=== PATIENT | female | born 1945 | race Hispanic/Latino ===

== ENCOUNTER 2025-02-05 15:09 | Emergency (ER) | payer OTHER ==
[~2025-02-05] VITALS: Ht 152.4 cm; Wt 63.5 kg
[~2025-02-05 15:09] MED LIST: AMLO-257 PO; BENA-8 PO; SIMV-43 PO; bayer PO
[2025-02-05 15:48] LABS: IMMATURE GRANULOCYTE ABSOLUTE 0.02 K/uL (0-1); NUCLEATED RED BLOOD CELLS 0.0 % (0.0-0.19); PLATELET COUNT (AUTO) 192 K/uL (130-400); RED BLOOD CELL COUNT(AUTO) 4.92 MIL/uL (4.00-5.50); RED CELL DISTRIBUTION WIDTH 12.9 % (11.0-15.5); WHITE BLOOD COUNT (AUTO) 7.0 K/uL (4.8-10.8)
--- NOTE | 2025-02-05 15:49 | EKG ---
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
--- NOTE | 2025-02-05 15:55 | ERN ---
General Chief Complaint: Dizzy/Light Headed Stated Complaint: DIZZINESS Time Seen by MD: 15:14 Source: patient History of Present Illness Initial Comments This patient is a 79-year-old female who presented with complaint of dizziness. Patient states that she got up to use restroom at 6:00 a.m. in the morning when she felt dizzy and lightheaded. She has a history of vertigo but states that this episode was different and she did not observe any spinning episodes. Only lightheadedness and weakness. Denies any chest pain, nausea, vomiting or loose stools. Patient confirms that she has been recently feeling short of breath with little to moderate activity. Timing/Duration: 4-6 hours Severity: mild Allergies: Coded Allergies: Penicillins (Unverified Allergy, Mild, 01/11/16) Home Meds Reported Medications [ginna] No Conflict Check, 300 MG PO HS 01/11/16 Amlodipine Besylate (Amlodipine Besylate) 5 Mg Tablet, 5 MG PO DAILY, #90 01/11/16 Simvastatin (Simvastatin) 20 Mg Tablet, 20 MG PO HS, #90 01/11/16 Benazepril HCl (Benazepril HCl) 20 Mg Tablet, 20 MG PO DAILY, #90 01/11/16 Past Medical History Past Medical History: Hypertension Past Surgical History: None Constitutional: (-) chills, (-) diaphoresis, (-) fever, (-) malaise, (-) weakness, (-) other documentation EENTM: (-) eye pain, (-) blurred vision, (-) tearing, (-) double vision, (-) ear pain, (-) ear discharge, (-) nose pain, (-) nose congestion, (-) throat pain, (-) Throat swelling, (-) mouth pain, (-) tooth pain, (-) mouth swelling, (-) other documentation Respiratory: (-) cough, (-) orthopnea, (-) short of breath, (-) stridor, (-) wheezing, (-) other documentation Cardiovascular: (+) other documentation (Lightheadedness); (-) chest pain, (-) edema, (-) palpitations, (-) syncope Gastrointestinal/Abdominal: (-) nausea, (-) vomiting, (-) diarrhea, (-) abdominal pain, (-) abdominal distention, (-) constipation, (-) rectal bleeding, (-) dark stool/melena, (-) other documentation Genitourinary: (-) vaginal discharge, (-) vaginal bleeding, (-) dysuria, (-) frequency, (-) hematuria, (-) pain, (-) other documentation Musculoskeletal: (-) Neck pain, (-) back pain, (-) Flank Pain, (-) joint pain, (-) joint swelling, (-) muscle pain, (-) muscle stiffness, (-) gout, (-) other documentation Skin: (-) laceration, (-) contusion, (-) abrasion, (-) abscess, (-) rash, (-) change in color, (-) change in hair, (-) change in nails, (-) diaphoresis, (-) dryness, (-) other documentation Neuro: (+) dizziness; (-) altered mental status, (-) headache, (-) syncope, (-) paralysis, (-) numbness, (-) seizure, (-) pre-existing deficit, (-) tremors, (-) weakness, (-) slurred speech, (-) vertigo, (-) other documentation Psych: (-) depression, (-) suicidal ideation, (-) anxiety, (-) emotional problems, (-) auditory hallucinations, (-) visual hallucinations Hematologic/Lymphatic: (-) anemia, (-) blood clots, (-) easy bleeding, (-) easy bruising, (-) swollen glands, (-) other documentation Physical Exam Physical Exam Dictation VITAL SIGNS: Reviewed. GENERAL APPEARANCE: Alert, oriented x3, no acute distress, obese. HEAD AND FACE: Non-traumatic. EYES: PERRL, pink conjunctivas, eyelid no trauma, anterior chamber clear. EARS: Pinnas intact and no signs of trauma or erythema. Ear canals clear and no discharge. TMs erythema. NOSE: No discharge, no bleeding. Nasal turbinate swelling OROPHARYNX: Mouth normal, teeth no caries, tongue pink. Pharynx erythema. Tonsils no exudates, no abscesses noted. Mucous membrane moist. NECK: Supple, non-tender, no thyromegaly, no masses, no JVD, no bruits. BREAST: Deferred. CHEST: No tenderness, no crepitus, no paradoxical movement, no retractions. LUNGS: Clear, well-ventilated, symmetric, no rales, no wheezing, no rhonchi, no stridor, good breath sounds bilaterally. HEART: Regular rate, regular rhythm, no murmur, no gallops. VASCULAR: No peripheral edema. ABDOMEN: Soft, positive bowel sounds, nondistended, no guarding, nontender, no rebound, no masses no hepatomegaly, no splenomegaly, no Cheema's sign, no hernias. RECTAL: Deferred. GENITAL: Deferred. NEUROLOGICAL: Normal speech, gross motor function intact, gross sensory function intact. MUSCULOSKELETAL: Neck nontender, full range of motion, back nontender, full range of motion. EXTREMITIES: Nontender, full range of motion. SKIN: Color pink, dry, no turgor, no rash, no lacerations, no abrasions, no contusions. LYMPHATICS: Deferred. General Appearance: (+) no apparent distress Orientation: (+) alert, (+) oriented x 3 Ear, Nose, Throat: (+) hearing grossly normal, (+) normal ENT inspection, (+) moist mucous membraine, (+) normal pharynx Neck: (+) normal inspection, (+) supple, (+) full range of motion Respiratory: (+) chest non-tender, (+) lungs clear Heart: (+) regular Vascular: (+) no edema Gastrointestinal: (+) soft, (+) non-tender Extremities: (+) normal range of motion, (+) non-tender, (+) normal inspection Neurologic/Psychiatric: (+) normal speech, (+) no motor defecits, (+) no sensory deficits Skin: (+) normal color Results Laboratory and Microbiology Lab and Micro Result Laboratory Tests Test 02/05/25 15:40 02/05/25 17:34 02/05/25 17:50 White Blood Count 7.0 K/uL (4.8-10.8) Red Blood Count 4.92 MIL/uL (4.00-5.50) Hemoglobin 14.5 g/dL (12.0-16.0) Hematocrit 44.5 % (36-48) Mean Corpuscular Volume 90.4 fL (79-99) Mean Corpuscular Hemoglobin 29.5 pg (27.0-33.0) Mean Corpuscular Hemoglobin Concent 32.6 g/dL (32.0-36.0) Red Cell Distribution Width 12.9 % (11.0-15.5) Platelet Count 192 K/uL (130-400) Mean Platelet Volume 10.5 fL (7.5-10.5) Immature Granulocyte % (Auto) 0.3 % (0-1) Neutrophils (%) (Auto) 76.1 % (40.0-77.0) Lymphocytes (%) (Auto) 14.7 % (21.0-51.0) L Monocytes (%) (Auto) 7.9 % (3.0-13.0) Eosinophils (%) (Auto) 0.4 % (0.0-8.0) Basophils (%) (Auto) 0.6 % (0.0-5.0) Neutrophils # (Auto) 5.3 K/uL (1.8-7.7) Lymphocytes # (Auto) 1.0 K/uL (1.0-4.8) Monocytes # (Auto) 0.6 K/uL (0.1-1.0) Eosinophils # (Auto) 0.03 K/uL (0.00-0.70) Basophils # (Auto) 0.04 K/uL (0.00-0.20) Absolute Immature Granulocyte (auto 0.02 K/uL (0-1) Nucleated Red Blood Cells 0.0 % (0.0-0.19) Sodium Level 140 mmol/L (136-145) Potassium Level 3.8 mmol/L (3.5-5.1) Chloride Level 104 mmol/L (101-111) Carbon Dioxide Level 28 mmol/L (21-32) Blood Urea Nitrogen 18 mg/dL (7-18) Creatinine 1.0 mg/dL (0.5-1.0) Glomerular Filtration Rate Calc 58 mL/min (>90) Random Glucose 150 mg/dL (70-105) H Total Calcium 9.4 mg/dL (8.5-10.1) Magnesium Level 2.10 mg/dL (1.80-2.40) Troponin I High Sensitivity 4 ng/L (4-50) Urine Color COLORLESS (YELLOW) Urine Appearance CLEAR (CLEAR) Urine pH 5.5 (5.0-8.0) Urine Specific [place] 1.007 (1.001-1.031) Urine Protein NEGATIVE mg/dL (NEGATIVE) Urine Glucose (UA) NEGATIVE mg/dL (NEGATIVE) Urine Ketones NEGATIVE mg/dL (NEGATIVE) Urine Occult Blood +- (TRACE) (NEGATIVE) H Urine Nitrate NEGATIVE (NEGATIVE) Urine Bilirubin NEGATIVE mg/dL (NEGATIVE) Urine Urobilinogen 0.2 mg/dL (0.2-1.0) Urine Leukocyte Esterase 75 [place]/uL (NEGATIVE) H Urine RBC 0-1 /HPF (0-1) Urine WBC 2-5 /HPF (0-1) H Urine Squamous Epithelial Cells RARE /HPF (0-2) Urine Bacteria None /HPF (None Seen) Influenza Type A Antigen Negative For Type A Influenza Type B Antigen Negative For Type B SARS-CoV-2, RNA, NAAT NEGATIVE SARS CoV-2 Labs Reviewed?: Yes EKG/XRAY/US/CT/MRI EKG Comment 02/05/2025 3:42 p.m. Rate 72 Sinus rhythm SC 129, QT 405, P 59, QRS 8, T 51 ST-elevation negative X-RAY Comment PATIENT: ENEDELIA BAUTISTA MR#: [id number] : 1945 SEX: F AGE: 79 LOCATION: [facility] ORDER 34 STATUS: [facility] REPORT#: [id number] SERVICE 29 REASON: New onset dizziness ORDERING PHYSICIAN: AMADOR MILLAN MD PROCEDURE: CXR1VW - CHEST 1VW EXAM: CR Chest, 1 View. CLINICAL HISTORY: New onset dizziness COMPARISON: None provided. FINDINGS: LUNGS: The lungs show no infiltrate or other acute finding. PLEURAL SPACES: No evidence of pleural effusion or pneumothorax. MEDIASTINUM: Cardiac size and mediastinal contours within normal limits. BONES: No aggressive appearing osseous lesion seen. IMPRESSION: No acute cardiopulmonary pathology is evident. /[place] DICTATED BY: DARLING SANCHEZ MD DATE: 02/05/251714 ELECTRONICALLY SIGNED BY: DARLING SANCHEZ MD DATE: 02/05/251714 [facility] Differential Diagnosis: Dizziness, vertigo This patient is a 79-year-old female who presented with complaint of dizziness. Patient states that she got up to use restroom at 6:00 a.m. in the morning when she felt dizzy and lightheaded. She has a history of vertigo but states that this episode was different and she did not observe any spinning episodes. Only lightheadedness and weakness. Denies any chest pain, nausea, vomiting or loose stools. Patient confirms that she has been recently feeling short of breath with little to moderate activity. On presentation, CBC, BMP, troponin, chest x-ray and EKG were done to rule out any cardiac causes. CT head without contrast was also done. Patient was given 500 mL normal saline and ondansetron. She was also given meclizine for suspected vertigo. Patient had a urinary tract infection mild and on physical also had sinus infection. Patient will be discharged with a diag nosis UTI and sinusitis. Patient states he feels much better wishes to go home. Also advised her if the symptoms resurface she needs to seek immediate help with the nearest ER to be evaluated. ED Course Orders Procedure Category Date Status Time Cbc With Differential LAB 02/05/25 Complete 15:30 Chest 1vw RAD 02/05/25 Resulted 15:30 12 Lead Ekg Tracing- EKG 02/05/25 Complete Technical 15:30 Ondansetron 4mg Inj PHA 02/05/25 Complete (Zofran 4mg Inj) 15:30 Troponin I High LAB 02/05/25 Complete Sensitivity 15:30 Urinalysis Profile LAB 02/05/25 Complete 15:30 Basic Metabolic Panel LAB 02/05/25 Complete 15:30 0.9% Nacl 500ml PHA 02/05/25 Complete Iv.Soln (Ns 500ml 15:30 Meclizine Hcl 25 Mg PHA 02/05/25 Complete (Antivert 25 Mg) 16:00 Ct Head/Brain W/O CT 02/05/25 Resulted Contrast 16:39 Magnesium LAB 02/05/25 Complete 17:15 Dexamethasone 4mg/Ml PHA 02/05/25 Complete 1ml Vial (Dexametha 17:30 Covid Rna Naat LAB 02/05/25 Complete 17:27 Influenza Type A & B, LAB 02/05/25 Complete Rapid 17:27 Culture Urine ENOC 02/05/25 In Process 17:47 Levofloxacin 500 PHA 02/05/25 Verified Mg/D5w 100 Ml 18:30 Current Medications Medications (Trade) Dose Ordered Sig/Kaelyn Route PRN Reason Start Time Stop Time Status Last Admin Dose Admin Dexamethasone Sodium Phosphate (dexaMETHasone 4MG/ML 1ML VIAL) 4 mg ONCE ONCE IV 02/05/25 17:30 02/05/25 17:31 DC 02/05/25 18:04 Meclizine HCl (ANTIvert 25 mg) 25 mg ONCE ONCE PO 02/05/25 16:00 02/05/25 16:01 DC 02/05/25 16:12 Ondansetron HCl (zoFRAN 4MG INJ) 4 mg ONCE ONCE IVP 02/05/25 15:30 02/05/25 15:36 DC 02/05/25 16:12 Sodium Chloride 500 ml @ 0 mls/hr ONCE ONCE IV 02/05/25 15:30 02/05/25 15:36 DC 02/05/25 16:12 Vital Signs Date Time Temp Pulse Resp B/P (MAP) Pulse Ox O2 Delivery O2 Flow Rate FiO2 02/05/25 17:38 98.8 88 18 179/73 98 Room Air* 0 21 02/05/25 15:12 98.8 92 18 185/79 98 DX & DISP Disposition: Discharge Departure Impression: Primary Impression: Sinusitis Additional Impression: UTI (urinary tract infection) Condition: Stable Scripts Loratadine (Loratadine) 10 Mg Tablet 1 TAB PO DAILY for allergy symptoms for 30 Days, #30 TAB 0 Refills Prov: KIM GARNICA MD 02/05/25 Fluticasone Propionate (Flonase Nasal [place]sey) 50 Mcg/Actuation [place] 2 SPRAY NS DAILY for 30 Days, #16 GM 0 Refills Prov: KIM GARNICA MD 02/05/25 Levofloxacin (Levaquin 750Mg Tabs) 750 Mg Tablet 1 TAB PO DAILY for 5 Days, #5 TAB 0 Refills Prov: KIM GARNICA MD 02/05/25 Additional Instructions: You have been reviewed in the emergency department at [facility] after presenting with chest pain. After considering your history, your risk factors, your EKG and your blood test troponins, have been found to be at very low risk less than (1 in 100) of having a major adverse cardiac event (like heart attack) in the near future. In the " low risk" group, the risks of doing further tests and treatment as the inpatient outweighs the benefits. In many patients in the low risk group for the test of any sort or unnecessary, however he should discuss this further with his general practitioner who will understand the medical and personal backgrounds better. Because we have never declared you" no risk" we would suggest. 1 returning for medical review if you have further episodes of chest pain/arm pain or other concerning symptoms like dizziness, collapse, palpitations or shortness of breath. 2. Following up with your local doctor who will consider the need for further testing and will also ensure that any modifiable risk factors you may have for heart disease are optimally managed. Patient will be discharged in stable condition at the moment discharge patient states , no chest pain Referrals: ALTAF PEREZ MD (PCP) Time of Disposition: 18:22 I have examined patient, & reviewed all documents, & agreed W/ the Diagnosis, an d Plan ATTESTATION BY PHYSICIAN I have seen and examined the patient. I reviewed the documentation, medical decision making, and treatment plan as noted by the resident provider above. I agree with the findings and plan of care. KIM GARNICA MD, MUHAMMAD H MD Feb 05, 2025 15:55 KIM GARNICA MD Feb 05, 2025 18:24
[2025-02-05 15:58] LABS: CREATININE 1.0 mg/dL (0.5-1.0); GLOMERULAR FILTR. RATE CALC 58.0 mL/min (>90); GLUCOSE,RANDOM 150.0 mg/dL (70-105); SODIUM SERUM 140.0 mmol/L (136-145); UREA NITROGEN, BLOOD 18.0 mg/dL (7-18)
[2025-02-05] MEDS: 0.9% NACL 500ML IV.SOLN 500 ML IV ONE (16:12)
--- NOTE | 2025-02-05 16:16 | HMCIMG ---
EXAM: CR Chest, 1 View. CLINICAL HISTORY: New onset dizziness COMPARISON: None provided. FINDINGS: LUNGS: The lungs show no infiltrate or other acute finding. PLEURAL SPACES: No evidence of pleural effusion or pneumothorax. MEDIASTINUM: Cardiac size and mediastinal contours within normal limits. BONES: No aggressive appearing osseous lesion seen. IMPRESSION: No acute cardiopulmonary pathology is evident. /[place]
--- NOTE | 2025-02-05 17:15 | HMCIMG ---
EXAM: CT Head Without IV contrast. CLINICAL HISTORY: dizzyness TECHNIQUE: Axial computed tomography images of the head/brain without intravenous contrast. COMPARISON: None provided. FINDINGS: BRAIN: Age-appropriate atrophy. 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 No mass lesion. No CT evidence for acute territorial infarct. No midline shift or extra-axial collections. VENTRICLES: No hydrocephalus. ORBITS: The orbits are unremarkable. SINUSES AND MASTOIDS: The paranasal sinuses and mastoid air cells are clear. BONES: No fracture. SOFT TISSUES: Unremarkable. IMPRESSION: No acute intracranial abnormality. /[place]
[2025-02-05 17:44] LABS: APPEARANCE,URINE CLEAR (CLEAR); GLUCOSE, URINE (UA) NEGATIVE (NEGATIVE); LEUKOCYTE ESTERASE ,URINE 75 Leu/uL (NEGATIVE); NITRATE,URINE NEGATIVE (NEGATIVE); OCCULT BLOOD,URINE +- (TRACE) (NEGATIVE)
[2025-02-05 17:46] LABS: ADD UA MICROSCOPIC YES
[2025-02-05 17:54] LABS: SQUAMOUS EPITHELIAL CELL,UR RARE /HPF (0-2)
[2025-02-05 18:13] LABS: SARS-CoV-2, RNA, NAAT NEGATIVE SARS CoV-2 (NEGATIVE)
[2025-02-05 18:17] LABS: INFLUENZA TYPE A Negative For Type A (NEGATIVE); INFLUENZA TYPE B Negative For Type B (NEGATIVE)
[2025-02-05] MEDS ORDERED: FLUT16H NS (18:23)
[2025-02-05] MEDS ORDERED: LORA10TA7 PO (18:23)
[2025-02-05] MEDS ORDERED: LEVO750T68 PO (18:23)
[2025-02-05 19:33] VITALS: BP 130/86; PULSE 60; RESP 17; TEMP 98.6; O2SAT 99
== END 2025-02-05 19:35 | disposition home or self-care (01) ==
LOC: EDH 15:09
DX: J32.9 Chronic sinusitis, unspecified (principal); N39.0 Urinary tract infection, site not specified; I10 Essential (primary) hypertension; Z20.822 Contact with and (suspected) exposure to COVID-19; Z79.899 Other long term (current) drug therapy; Z88.0 Allergy status to penicillin
CPT/HCPCS: 99285; 96365; 70450; 96375; 71045; 87635; 83735; 84484; 80048; 85025; 87086; 87804 ×2; 81001; 36415; 93005; J1100; J7040; J1956; J2405